=== PATIENT | male | born 1970 | race Caucasian/White ===

== ENCOUNTER 2017-12-26 20:01 | Observation (INO) | payer SELFPAY ==
[~2017-12-26] VITALS: Ht 185.4 cm; Wt 100.0 kg
[2017-12-26 20:10] VITALS: BP 129/78; PULSE 89; RESP 20; TEMP 98.4; O2SAT 97
--- NOTE | 2017-12-26 20:17 | PD ---
HPI Chief Complaint: Chest pain Time Seen by Provider: 20:15 Travel History International Travel<30 days: No Contact w/Intl Traveler<30days: No History of Present Illness HPI 47yo M with PMH of HLD, VSD s/p repair at 6yo, seizure disorder on dilantin presents to the ED with c/o left sided chest pain that started 30 minutes ago when he was walking to bus stop. Pt said pain is sharp, and squeezing and radiated down left arm as well as left side of abdomen. His left arm feels a little numb with the pain. Said the left abdominal radiation has resolved and now is mainly in left chest. Associated with sob, nausea and diaphoresis. Denies any fever, cough, hemoptysis, vomiting, abdominal pain. Father from heart attack at 56yo. +Cig smoker. Said he had mini heart attack last year. PFSH Social History Tobacco Use: No Allergies-Medications (Allergen,Severity, Reaction): Coded Allergies: Penicillins (Verified Allergy, Severe, Anaphylaxis, 12/26/17) Reported Meds & Prescriptions Reported Meds & Active Scripts Active Reported Vitamin D (Cholecalciferol) 2,000 Unit Cap Haloperidol 10 Mg Tab 10 Mg PO DAILY Gabapentin 100 Mg Cap 100 Mg PO TID Atorvastatin (Atorvastatin Calcium) 20 Mg Tab 20 Mg PO HS Dilantin (Phenytoin Extended) 100 Mg Cap 200 Mg PO TID Review of Systems Except as stated in HPI: all other systems reviewed are Neg Physical Exam Narrative GENERAL: 47yo M not in distress. SKIN: Focused skin assessment warm/dry. HEAD: Atraumatic. Normocephalic. EYES: Pupils equal and round. No scleral icterus. No injection or drainage. ENT: No nasal bleeding or discharge. Mucous membranes pink and moist. NECK: Trachea midline. No JVD. CARDIOVASCULAR: Regular rate and rhythm. No murmur appreciated. RESPIRATORY: No accessory muscle use. Clear to auscultation. Breath sounds equal bilaterally. GASTROINTESTINAL: Abdomen soft, non-tender, nondistended. MUSCULOSKELETAL: No obvious deformities. No clubbing. No cyanosis. No edema. NEUROLOGICAL: Awake and alert. No obvious cranial nerve deficits. Motor grossly within normal limits in all extremities. Sensation equal. Normal speech. PSYCHIATRIC: Appropriate mood and affect; insight and judgment normal. Data Data Last Documented VS Vital Signs Date Time Temp Pulse Resp B/P (MAP) Pulse Ox O2 Delivery O2 Flow Rate FiO2 12/26/17 20:10 98.4 89 20 129/78 (95) 97 Orders Orders Electrocardiogram (12/26/17 20:15) Basic Metabolic Panel (Bmp) (12/26/17 20:15) Complete Blood Count With Diff (12/26/17 20:15) Magnesium (Mg) (12/26/17 20:15) Prothrombin Time / Inr (Pt) (12/26/17 20:15) Act Partial Throm Time (Ptt) (12/26/17 20:15) Troponin I (12/26/17 20:15) Chest, Single Ap (12/26/17 20:15) Phenytoin (Dilantin) (12/26/17 20:20) Admit Order (Ed Use Only) (12/26/17 21:57) Labs Laboratory Tests Test 12/26/17 20:20 White Blood Count 13.5 TH/MM3 Red Blood Count 4.63 MIL/MM3 Hemoglobin 15.5 GM/DL Hematocrit 43.7 % Mean Corpuscular Volume 94.5 FL Mean Corpuscular Hemoglobin 33.5 PG Mean Corpuscular Hemoglobin Concent 35.4 % Red Cell Distribution Width 13.2 % Platelet Count 254 TH/MM3 Mean Platelet Volume 7.3 FL Neutrophils (%) (Auto) 73.9 % Lymphocytes (%) (Auto) 17.9 % Monocytes (%) (Auto) 5.9 % Eosinophils (%) (Auto) 1.6 % Basophils (%) (Auto) 0.7 % Neutrophils # (Auto) 9.9 TH/MM3 Lymphocytes # (Auto) 2.4 TH/MM3 Monocytes # (Auto) 0.8 TH/MM3 Eosinophils # (Auto) 0.2 TH/MM3 Basophils # (Auto) 0.1 TH/MM3 CBC Comment DIFF FINAL Differential Comment Prothrombin Time 10.4 SEC Prothromb Time International Ratio 1.0 RATIO Activated Partial Thromboplast Time 27.2 SEC Blood Urea Nitrogen 8 MG/DL Creatinine 0.74 MG/DL Random Glucose 95 MG/DL Calcium Level 8.8 MG/DL Magnesium Level 2.1 MG/DL Sodium Level 139 MEQ/L Potassium Level 3.8 MEQ/L Chloride Level 105 MEQ/L Carbon Dioxide Level 24.7 MEQ/L Anion Gap 9 MEQ/L Estimat Glomerular Filtration Rate 112 ML/MIN Troponin I LESS THAN 0.02 NG/ML Phenytoin (Dilantin) Level 1.0 MCG/ML [facility] Medical Decision Making Medical Screen Exam Complete: Yes Emergency Medical Condition: Yes Interpretation(s) EKG: NSR 81bpm. RBBB. Mild ST depression V3. Differential Diagnosis ACS vs. costochondritis vs. pericarditis vs. pneumonia Narrative Course 47yo M with left sided chest pain while walking. Pt has some cardiac risk factors including cig smoking and possible CAD. Pt said he had mini heart attack last year but when I describe a cardiac cath, he did not have one. Said he is from [place] and does not have a copy manager or recent stress test. PERC negative. Labs reviewed, WBC 13.5. H/H normal. Troponin negative. BMP unremarkable. Dilantin level is low. Pt said he took is dilantin 200mg this morning. He is due for one tonight so will give it to him. Pt was given aspirn , and sublingual nitro x3 by [facility] and said chest pain has resolved. Will admit to chest pain center for serial EKG and cardiac enzyme. Diagnosis Primary Impression: Chest pain Qualified Codes: R07.9 - Chest pain, unspecified Admitting Information Admitting Physician Requests: Josie Haynes DO December 26, 2017 20:17
[2017-12-26] MEDS ORDERED: GABA100C4 PO (20:29)
[2017-12-26] MEDS ORDERED: ATOR20TA15 PO (20:29)
[2017-12-26] MEDS ORDERED: VITA200013 (20:29)
[2017-12-26] MEDS ORDERED: DILA100C PO (20:29)
[2017-12-26] MEDS ORDERED: HALO10TA PO (20:29)
--- NOTE | 2017-12-26 20:49 | RADRPT ---
EXAM DATE/TIME: 12/26/2017 20:24 [facility] COMPARISON: No previous studies available for comparison. INDICATIONS : Chest pain for 30 minutes. MEDICAL HISTORY : None. SURGICAL HISTORY : open heart at age 6 ENCOUNTER: Initial ACUITY: 1 day PAIN SCORE: 6/10 LOCATION: upper chest FINDINGS: A single view of the chest demonstrates the lungs to be symmetrically aerated without evidence of mas s, infiltrate or effusion. The cardiomediastinal contours are unremarkable. Osseous structures are intact. CONCLUSION: No acute disease. Hugo Borjas MD on December 26, 2017 at 20:46 Board Certified Radiologist. This report was verified electronically.
[2017-12-26 21:07] LABS: AUTOMATED NEUTROPHIL # 9.9 TH/MM3 (1.8-7.7); BASOPHIL # 0.1 TH/MM3 (0-0.2); BASOPHIL % 0.7 % (0.0-2.0); EOSINOPHIL # 0.2 TH/MM3 (0-0.4); EOSINOPHIL % 1.6 % (0.0-4.0); HEMATOCRIT 43.7 % (39.0-51.0); HEMOGLOBIN 15.5 GM/DL (13.0-17.0); LYMPH % 17.9 % (9.0-44.0); LYMPHOCYTE # 2.4 TH/MM3 (1.0-4.8); MEAN CELL VOLUME 94.5 FL (80.0-100.0); MEAN CORPUSCULAR HEMOGLOBIN 33.5 PG (27.0-34.0); MEAN CORPUSCULAR HGB CONC 35.4 % (32.0-36.0); MEAN PLATELET VOLUME 7.3 FL (7.0-11.0); MONO % 5.9 % (0.0-8.0); MONOCYTE # 0.8 TH/MM3 (0-0.9); NEUT % 73.9 % (16.0-70.0); PLATELET COUNT 254 TH/MM3 (150-450); RED BLOOD COUNT 4.63 MIL/MM3 (4.50-5.90); RED CELL DISTRIBUTION WIDTH 13.2 % (11.6-17.2); WHITE BLOOD COUNT 13.5 TH/MM3 (4.0-11.0)
[2017-12-26 21:18] LABS: BICARBONATE 24.7 MEQ/L (21.0-32.0); BLOOD UREA NITROGEN 8 MG/DL (7-18); CALCIUM 8.8 MG/DL (8.5-10.1); CHLORIDE 105 MEQ/L (98-107); CREATININE 0.74 MG/DL (0.60-1.30); GLOMERULAR FILTRATION RATE 112 ML/MIN (>89); GLUCOSE,RANDOM 95 MG/DL (74-106); MAGNESIUM 2.1 MG/DL (1.5-2.5); SODIUM (NA) 139 MEQ/L (136-145)
[2017-12-26 21:22] LABS: TROPONIN I LESS THAN 0.02 NG/ML (0.02-0.05)
[2017-12-26 21:23] LABS: PROTHROMBIN TIME - PATIENT 10.4 SEC (9.8-11.6)
[2017-12-26] MEDS ORDERED: PHENYTOIN SODIUM 100 MG CAP PO ONE (22:15)
[2017-12-26] MEDS ORDERED: SODIUM CHLORIDE 0.9% FLUSH 10 ML FLUSH IV FLUSH PRN (22:30)
[2017-12-26 22:49] VITALS: BP 145/81; PULSE 66; RESP 16; TEMP 97.7; O2SAT 96
[2017-12-26 23:25] LABS: TROPONIN I LESS THAN 0.02 NG/ML (0.02-0.05)
[2017-12-27 01:53] LABS: TROPONIN I LESS THAN 0.02 NG/ML (0.02-0.05)
[2017-12-27 04:00] VITALS: PULSE 71
[2017-12-27 04:21] VITALS: BP 114/66; PULSE 72; RESP 18; TEMP 98.6; O2SAT 95
[2017-12-27 07:35] VITALS: PULSE 73
[2017-12-27] MEDS ORDERED: DILA100C PO (07:35)
[2017-12-27 07:51] VITALS: BP 108/64; PULSE 73; RESP 18; TEMP 98.1; O2SAT 94
--- NOTE | 2017-12-27 08:11 | HHI.HP ---
HPI Primary Care Physician No Primary Care Physician Chief Complaint Chest pain History of Present Illness This is a 47-year-old male history of hyperlipidemia, VSD repair at age 6, seizure disorder, and tobacco abuse that presents to ED via private vehicle with complaint of chest discomfort. Patient states that he was visiting family in [place]. He was on a [employer] bus on the way back and there was a layover in [place]. He got off the bus and decided to go to the peer and have dinner. Started to rain as he was waiting for the bus to take him back to the [employer] bus station. He developed a squeezing left chest rated as an 8 out of 10. States he was short of breath, nauseous, and diaphoretic. He states he called 911 within about a few minutes. He was given nitroglycerin almost immediately. States that within a few minutes afterwards the discomfort resolved however he states came back while in the hospital last night. It also lasts a few minutes at that time. He had no associated symptoms with the second episode. States he had a similar issue about a year ago and was admitted for almost a week. States they told him he had a mild heart attack. States he had a stress test and believe that was okay. He states he has never had a cardiac catheterization. Currently denies chest discomfort. Review of Systems General: Patient denies fevers, chills. HEENT: Patient denies headache, sore throat, difficulty swallowing. Cardiovascular: Has the chest discomfort as mentioned above. Denies sensation of heart beating rapidly or irregularly. No syncope. He was diaphoretic on during the first episode of chest discomfort. Respiratory: He was short of breath with the first episode of chest discomfort. Denies inspirational chest discomfort. Denies coughing wheezing or hemoptysis. GI: He was nauseous with the first episode of chest discomfort. Patient denies vomiting, diarrhea, abdominal pain, bloody stools. Musculoskeletal: Patient denies joint pain or edema. Denies calf pain or edema. Neurovascular: Patient denies numbness, tingling, weakness in extremities. Denies headache. Endocrine: Denies polyuria and polydipsia. Hematologic: Denies easy bruising. Skin: Denies rash or itching. Past Family Social History Allergies: Coded Allergies: Penicillins (Verified Allergy, Severe, Anaphylaxis, 12/26/17) Past Medical History Hyperlipidemia, VSD repaired at age 6, seizure disorder, tobacco abuse. Denies hypertension, diabetes, and known CAD. Past Surgical History VSD repair at age 6. Reported Medications Reported Meds & Active Scripts Active Dilantin (Phenytoin Extended) 100 Mg Cap 200 Mg PO BID Reported Vitamin D (Cholecalciferol) 2,000 Unit Cap Haloperidol 10 Mg Tab 10 Mg PO DAILY Gabapentin 100 Mg Cap 100 Mg PO TID Atorvastatin (Atorvastatin Calcium) 20 Mg Tab 20 Mg PO HS Active Ordered Medications Current Medications Medications (Trade) Dose Ordered Sig/Lita Route Start Time Stop Time Status Last Admin (NS Flush) 2 ml UNSCH PRN IV FLUSH 12/26/17 22:30 (NS Flush) 2 ml BID IV FLUSH 12/27/17 09:00 (Lipitor) 20 mg HS PO 12/27/17 21:00 UNV (Neurontin) 100 mg TID PO 12/27/17 09:00 UNV (Haldol) 10 mg DAILY PO 12/27/17 09:00 UNV Family History States his father at age 56 of a myocardial infarction. Social History Smokes about one half pack a day, states he started smoking 3 years ago. Has occasional alcohol. Denies illicit drug use. Physical Exam Vital Signs Vital Signs Date Time Temp Pulse Resp B/P (MAP) Pulse Ox O2 Delivery O2 Flow Rate FiO2 12/27/17 07:51 98.1 73 18 108/64 (79) 94 12/27/17 06:35 21 12/27/17 04:21 98.6 72 18 114/66 (82) 95 12/27/17 04:00 71 12/26/17 22:57 12/26/17 22:49 97.7 66 16 145/81 (102) 96 12/26/17 20:10 98.4 89 20 129/78 (95) 97 Physical Exam GENERAL: This is a well-nourished, well-developed patient, in no apparent distress. Patient speaks in clear complete sentences. Patient is pleasant. HEENT: Head is atraumatic and normocephalic. Neck is supple without lymphadenopathy and trachea is midline. No JVD or carotid bruits. CARDIOVASCULAR: Grade 2 systolic murmur heard throughout however seems loudest at left sternal border. Regular rate and rhythm without gallops or rubs. RESPIRATORY: Clear to auscultation. Breath sounds equal bilaterally. No wheezes , rales, or rhonchi. Chest wall is nontender. No use of accessory muscles. GASTROINTESTINAL: Abdomen is nontender, nondistended. Abdomen soft. No obvious pulsatile mass or bruit. No CVA tenderness. Strong femoral pulses bilaterally. Normal bowel sounds in all quadrants. MUSCULOSKELETAL: Patient is moving upper and lower extremities freely. No calf tenderness or edema, no Homans sign. Strong pulses in upper and lower extremities. NEUROLOGICAL: Patient is alert and oriented. Cranial nerves 2-12 are grossly intact. No focal deficits and speech is clear. SKIN: No rash and turgor is normal. Laboratory Laboratory Tests Test 12/26/17 20:20 12/26/17 22:40 12/27/17 01:15 White Blood Count 13.5 Red Blood Count 4.63 Hemoglobin 15.5 Hematocrit 43.7 Mean Corpuscular Volume 94.5 Mean Corpuscular Hemoglobin 33.5 Mean Corpuscular Hemoglobin Concent 35.4 Red Cell Distribution Width 13.2 Platelet Count 254 Mean Platelet Volume 7.3 Neutrophils (%) (Auto) 73.9 Lymphocytes (%) (Auto) 17.9 Monocytes (%) (Auto) 5.9 Eosinophils (%) (Auto) 1.6 Basophils (%) (Auto) 0.7 Neutrophils # (Auto) 9.9 Lymphocytes # (Auto) 2.4 Monocytes # (Auto) 0.8 Eosinophils # (Auto) 0.2 Basophils # (Auto) 0.1 CBC Comment DIFF FINAL Differential Comment Prothrombin Time 10.4 Prothromb Time International Ratio 1.0 Activated Partial Thromboplast Time 27.2 Blood Urea Nitrogen 8 Creatinine 0.74 Random Glucose 95 Calcium Level 8.8 Magnesium Level 2.1 Sodium Level 139 Potassium Level 3.8 Chloride Level 105 Carbon Dioxide Level 24.7 Anion Gap 9 Estimat Glomerular Filtration Rate 112 Troponin I LESS THAN 0.02 LESS THAN 0.02 LESS THAN 0.02 Phenytoin (Dilantin) Level 1.0 Total Creatine Kinase 79 73 Result Diagram: 12/26/17201912/26/172019 Imaging Chest x-ray reveals nothing acute. There are sternal wires present. Course Right bundle branch block. No significant ST segment pressure elevation. Caprini VTE Risk Assessment Caprini VTE Risk Assessment: No/Low Risk (score <= 1) Caprini Risk Assessment Model Point Value = 1 Point Value = 2 Point Value = 3 Point Value = 5 Age 41-60 Minor surgery BMI > 25 kg/m2 Swollen legs Varicose veins or History of unexplained or recurrent spontaneous Oral contraceptives or hormone replacement Sepsis (< 1 month) Serious lung disease, including pneumonia (< 1 month) Abnormal pulmonary function Acute myocardial infarction Congestive heart failure (< 1 month) History of inflammatory bowel disease Medical patient at bed rest Age 61-74 Arthroscopic surgery Major open surgery (> 45 min) Laparoscopic surgery (> 45 min) Malignancy Confined to bed (> 72 hours) Immobilizing plaster cast Central venous access Age >= 75 History of VTE Family history of VTE Factor V Leiden Prothrombin [id number] Lupus anticoagulant Anticardiolipin antibodies Elevated serum homocysteine Heparin-induced thrombocytopenia Other congenital or acquired thrombophilia Stroke (< 1 month) Elective arthroplasty Hip, pelvis, or leg fracture Acute spinal cord injury (< 1 month) Prophylaxis Regimen Total Risk Factor Score Risk Level Prophylaxis Regimen 0-1 Low Early ambulation 2 Moderate Order ONE of the following: *Sequential Compression Device (SCD) *Heparin 5000 units SQ BID 3-4 Higher Order ONE of the following medications: *Heparin 5000 units SQ TID *Enoxaparin/Lovenox 40 mg SQ daily (WT < 150 kg, CrCl > 30 mL/min) *Enoxaparin/Lovenox 30 mg SQ daily (WT < 150 kg, CrCl > 10-29 mL/min) *Enoxaparin/Lovenox 30 mg SQ BID (WT < 150 kg, CrCl > 30 mL/min) AND/OR *Sequential Compression Device (SCD) 5 or more Highest Order ONE of the following medications: *Heparin 5000 units SQ TID (Preferred with Epidurals) *Enoxaparin/Lovenox 40 mg SQ daily (WT < 150 kg, CrCl > 30 mL/min) *Enoxaparin/Lovenox 30 mg SQ daily (WT < 150 kg, CrCl > 10-29 mL/min) *Enoxaparin/Lovenox 30 mg SQ BID (WT < 150 kg, CrCl > 30 mL/min) AND *Sequential Compression Device (SCD) Assessment and Plan Assessment and Plan * Chest pain: Patient has had serial cardiac enzymes and EKGs for ruling out purposes. Seen by Dr. Jay Izaguirre of cardiology and chest pain center. Will undergo a Lexiscan. Patient be discharged home if Lexiscan is nonischemic with instructions to follow up PCP. Return to ED for interval issues. * Hyperlipidemia: Continue medication. * Bipolar disorder: Continue medication. * Seizure disorder: Continue medication. * Tobacco abuse: Patient counseled for smoking cessation. Patient stable at this time. He is agreeable to this plan. Js Castillo December 27, 2017 08:11
[2017-12-27] MEDS ORDERED: cloNIDine HCL 0.1 MG TAB PO PRN (08:15)
[2017-12-27] MEDS ORDERED: RESP: ALBUTEROL 2.5 MG/IPRATROPIUM 0.5 MG NEB (PRN) INH (08:15)
--- NOTE | 2017-12-27 08:38 | EKG ---
Date Performed: 12/27/2017 Time Performed: 01:19:05 PTAGE: 47 years EKG: Sinus rhythm MARKED LEFT AXIS DEVIATION RIGHT BUNDLE BRANCH BLOCK ABNORMAL ECG PREVIOUS TRACING : 12/26/2017 23.45 Since previous tracing, no significant change noted DOCTOR: Jay Izaguirre Interpretating Date/Time 12/27/2017 08:38:22
--- NOTE | 2017-12-27 08:39 | EKG ---
Date Performed: 12/26/2017 Time Performed: 20:14:59 PTAGE: 47 years EKG: Sinus rhythm INDETERMINATE AXIS RIGHT BUNDLE BRANCH BLOCK ABNORMAL ECG NO PREVIOUS TRACING DOCTOR: Jay Izaguirre Interpretating Date/Time 12/27/2017 08:39:17
--- NOTE | 2017-12-27 08:39 | EKG ---
Date Performed: 12/26/2017 Time Performed: 23:45:39 PTAGE: 47 years EKG: Sinus rhythm MARKED LEFT AXIS DEVIATION RIGHT BUNDLE BRANCH BLOCK ABNORMAL ECG PREVIOUS TRACING : 12/26/2017 20.14 Since previous tracing, no significant change noted DOCTOR: Jay Izaguirre Interpretating Date/Time 12/27/2017 08:38:31
[2017-12-27] MEDS ORDERED: GABAPENTIN 100 MG CAP PO SCH (09:00)
[2017-12-27] MEDS ORDERED: HALOPERIDOL 10 MG TAB PO SCH (09:00)
[2017-12-27] MEDS ORDERED: SODIUM CHLORIDE 0.9% FLUSH 10 ML FLUSH IV FLUSH SCH (09:00)
[2017-12-27] MEDS ORDERED: REGADENOSON INJ 0.4 MG/5 ML SYR ONE (09:01)
--- NOTE | 2017-12-27 10:24 | RADRPT ---
EXAM DATE/TIME: 12/27/2017 08:46 [facility] COMPARISON: No previous studies available for comparison. INDICATIONS : Left sided chest pain radiating to left arm with nausea, dyspnea and diaphoresis. Angina. DOSE: 35.0 mCi Tc99m Myoview at stress. 11.0 mCi Tc99m Myoview at rest. 0.4 mg Lexiscan STRESS SYMPTOMS: Headache and nausea. EJECTION FRACTION: 52% MEDICAL HISTORY : Seizures. SURGICAL HISTORY : Ventral septal defect repair. ENCOUNTER: Initial ACUITY: 1 day PAIN SCALE: 6/10 LOCATION: Left chest TECHNIQUE: The patient underwent pharmacologic stress with infusion of prescribed dose. Continuous ECG tracing was monitored during stress. Gated SPECT imaging was performed after stress and conventional SPECT i maging was performed at rest. The examination was performed on a SPECT/CT scanner, both attenuation and non-corrected datasets were reviewed. FINDINGS: DISTRIBUTION: The maximum perfused segment at stress is in the septal wall. PERFUSION STUDY: No focal stress-induced perfusion defect. GATED STUDY: There is mild global hypokinesia slightly more prominent in the apical wall. CONCLUSION: 1. No evidence for stress-induced ischemia. 2. Mild global hypokinesia slightly more prominent in the apical wall with reduced EF of 52%. RISK CATEGORY: Low (<1% Annual Mortality Rate) Elgin Wall MD on December 27, 2017 at 10:18 Board Certified Radiologist. This report was verified electronically.
--- NOTE | 2017-12-27 10:34 | HHI.DCPOC ---
Discharge Care Plan Diagnosis: (1) Chest pain (2) Hyperlipidemia (3) Tobacco abuse Goals to Promote Your Health * To prevent worsening of your condition and complications * To maintain your health at the optimal level Directions to Meet Your Goals Take your medications as prescribed Follow your dietary instruction Follow activity as directed Keep your appointments as scheduled Take your immunizations and boosters as scheduled If your symptoms worsen call your PCP, if no PCP go to Urgent Care Center or Emergency Room Smoking is Dangerous to Your Health. Avoid second hand smoke Call the 24-hour hour crisis hotline for domestic abuse at Js Castillo December 27, 2017 10:33
--- NOTE | 2017-12-27 16:38 | TR ---
Date Performed: 12/27/2017 Time Performed: 09:09:22 DOCTOR: Jay Izaguirre DRUG LIST: CLINICAL HISTORY: REASON FOR TEST: REASON FOR ENDING: OBSERVATION: CONCLUSION: COMMENTS: Lexiscan stress test was performed under standard four minute protocol. Radionuclide was injected one minute prior to ending the test. No electrocardiographic abormalities were present t o suggest ischemia. Nuclear imaging and interpretation are pending.
[2017-12-27] MEDS ORDERED: ATORVASTATIN 20 MG TAB PO SCH (21:00)
== END 2017-12-27 11:53 | disposition home or self-care (01) ==
LOC: NEPC 20:01 → NEDA 21:58 → NEPGCP 22:44
PROVIDERS: ADMIT Internal Medicine Interventional Cardiology; ATTEND Internal Medicine Interventional Cardiology
DX: R07.89 Other chest pain (principal); R06.02 Shortness of breath; R11.0 Nausea; R61 Generalized hyperhidrosis; I25.2 Old myocardial infarction; E78.5 Hyperlipidemia, unspecified; R94.31 Abnormal electrocardiogram [ECG] [EKG]; I45.10 Unspecified right bundle-branch block; G40.909 Epilepsy, unspecified, not intractable, without status epilepticus; F31.9 Bipolar disorder, unspecified; F17.200 Nicotine dependence, unspecified, uncomplicated; Z79.899 Other long term (current) drug therapy; Z87.74 Personal history of (corrected) congenital malformations of heart and circulatory system; Z82.49 Family history of ischemic heart disease and other diseases of the circulatory system
CPT/HCPCS: 71045; 78452; 80048; 80185; 82550; 83735; 84484; 85025; 85610; 85730; 93005; 93017; 99285; A9502; G0378; J2785